=== PATIENT | male | born 1965 | race Hispanic/Latino ===

== ENCOUNTER → 2019-03-11 | Outpatient (CLI) | payer OTHER | END | disposition home or self-care (01) | LOC: EEVIPCON 11:18 → RAH 11:18 | PROVIDERS: ATTEND Internal Medicine | DX: S02.8 Fractures of other specified skull and facial bones (principal); X58.XXXS Exposure to other specified factors, sequela | CPT/HCPCS: 70150; 70160; 70220 ==